=== PATIENT | female | born 1990 | race Caucasian/White ===

== ENCOUNTER 2017-04-14 17:48 | Emergency (ER) | payer OTHER ==
--- NOTE | 2017-04-14 18:06 | PDOC ---
History of Present Illness <Fartun Hawthorne - Last Filed: 04/14/17 18:30> - History of Present Illness Initial Comments: 04/14/17 18:07 - History of Present Illness Initial Comments: 04/14/17 18:06 The patient is a 26 year old female, with no significant past medical history, who presents to the emergency department with pain to her right hand for 6 days s/p punching a wall. The patient states she played volleyball last night which exacerbated the pain and swelling to her right hand. She localizes her pain to dorsum of her left hand along the 4th 5th metacarpals. She states she is able to make a fist without difficulty, however, reports tenderness to palpation at the 4th and 5th knuckles also. She denies numbness or tingling to her hand or fingers. She denies pain to her wrist. She states she has been intermittently icing her injured hand with minimal alleviation of her symptoms. The patient denies any other complaints of pain at this time. The remainder of the review of symptoms is negative at this time. Allergies: penicillins <Fartun Hawthorne - Last Filed: 04/14/17 18:06> <Mara Morales - Last Filed: 04/14/17 18:32> - General Chief Complaint: Injury Stated Complaint: RIGHT HAND INJURY Time Seen by Provider: 04/14/17 17:56 Past History <Fartun Hawthorne - Last Filed: 04/14/17 18:30> - Immunization History Immunization Up to Date: Yes - Psycho/Social/Smoking Cessation Hx Anxiety: No Suicidal Ideation: No Smoking Status: No Smoking History: Never smoked Number of Cigarettes Smoked Daily: 0 <Mara Morales - Last Filed: 04/14/17 18:32> - Past Medical History Allergies/Adverse Reactions: Allergies Allergy/AdvReac Type Severity Reaction Status Date / Time Penicillins Allergy Mild Verified 04/14/17 18:28 Home Medications: Ambulatory Orders Norgestrel-Ethinyl Estradiol [Cryselle-28 Tablet] 1 each PO ASDIR 04/14/17 Review of Systems - Review of Systems Able to Perform ROS?: Yes <Fartun Hawthorne - Last Filed: 04/14/17 18:30> *Physical Exam - Physical Exam Comments: 04/14/17 18:04 Physical exam Patient is alert and ambulatory and answering questions Head is normocephalic and atraumatic Right upper extremity- There is full range of motion of the elbow and full range of motion of the wrist There is tenderness on the fourth and fifth metacarpals into the fourth and fifth knuckles on palpation There is some ecchymosis seen in this area There is no tenderness of the first second or third knuckles Patient is able to completely make a fist and open her hand without difficulty The fingers are warm with intact sensation and good capillary refill There is no tenderness on the fingers Radial pulse is intact, and there is full range of motion of the wrist Patient is able to fully extend and fully flex the wrist without difficulty <Mara Morales - Last Filed: 04/14/17 18:32> ED Treatment Course - RADIOLOGY Radiograph Interpretation: 04/14/17 18:28 Right hand Xray was read by Dr. Patel at 18:24 Impression: no acute fracture or bony abnormality appreciated <Fartun Hawthorne - Last Filed: 04/14/17 18:30> - RADIOLOGY Radiology Studies Ordered: Category Date Time Status HAND- RIGHT [RAD] Stat Radiology 04/14/17 18:01 Ordered <Mara Morales - Last Filed: 04/14/17 18:32> Medical Decision Making - Medical Decision Making 04/14/17 18:06 Possible boxer's fracture 04/14/17 18:31 Right hand series-negative, no fracture seen Impression-right hand contusion <Mara Morales - Last Filed: 04/14/17 18:32> *DC/Admit/Observation/Transfer - Attestations Scribe Attestion: 04/14/17 18:09 Documentation prepared by Fartun Hawthorne, acting as medical office receptionist assistant for Mara Morales MD <Fartun Hawthorne - Last Filed: 04/14/17 18:30> <Mara Morales - Last Filed: 04/14/17 18:32> Diagnosis at time of Disposition: Contusion of right hand - Discharge Dispostion Disposition: HOME Condition at time of disposition: Stable - Referrals Referrals: Sukhdev Zelaya MD [Staff Physician] - (Orthopedics-call for an appointment if you are not improving) - Patient Instructions Additional Instructions: Rest, Tylenol or Motrin for pain No sports or gym for one week Followup with your primary care physician in 24-48 hours Return immediately if you worsen in any way Please call orthopedics for an appointment if you're not starting to feel better in a few days
[2017-04-14 18:28] VITALS: BP 122/75; PULSE 72; TEMP 98.7; BMI 29.2
== END 2017-04-14 18:40 | disposition home or self-care (01) ==
LOC: FER 17:48
DX: S60.221A Contusion of right hand, initial encounter (principal); W22.01XA Walked into wall, initial encounter; Y93.89 Activity, other specified; Y92.9 Unspecified place or not applicable
CPT/HCPCS: 73130-TC-RT; 99282-25